=== PATIENT | female | born 1950 | race Caucasian/White ===

== ENCOUNTER 2018-04-19 11:24 | Inpatient (IN) ==
--- NOTE | 2018-04-19 11:49 | PROVIDER DOCUMENTATION ---
HPI-General Adult - General Stated Complaint: FALL Time Seen by Provider: 04/19/18 11:42 Source: patient Allergies/Adverse Reactions: Patient Allergies Allergy/AdvReac Type Severity Reaction Status Date / Time codeine Allergy ANAPHYLAXIS Verified 02/06/18 09:48 erythromycin base Allergy ANAPHYLAXIS Verified 02/06/18 09:48 [Erythromycin Base] Iodinated Contrast- Oral and Allergy RASH Verified 02/06/18 09:48 IV Dye [IV Dye] Penicillins Allergy ANAPHYLAXIS Verified 02/06/18 09:48 Home Medications: Home Medication List Medication Instructions Recorded Confirmed Last Taken Type Metformin [Glucophage] 500 mg PO DAILY 08/30/17 02/15/18 02/14/18 08:00 History Cholecalciferol (Vitamin D3) 2,000 unit PO DAILY #120 cap 10/13/17 02/15/18 08:00 Rx [D3-2000] Metoclopramide [Reglan Liquid] 10 mg PO AC + HS #30 udc 10/13/17 02/15/18 08:00 Rx Escitalopram [Lexapro] 10 mg PO DAILY 02/06/18 02/15/18 02/14/18 20:00 History Insulin Regular, Human [Novolin R] 5 - 10 units SQ TID 02/06/18 02/15/18 20:00 History - History of Present Illness -Gen Adult Nature of Presenting Problems: Pt. is 68 yof that presents with c/o left hip pain with dizziness. She reports she has been nauseated and dizzy and she tried to sit down in her chair but fell forward instead hitting her head on an unknown object. She reports she was knocked out for a couple minutes and when she woke she vomited. Pt. was brought in by EMS. Pt. reports it hurts to move her left leg and EMS reports shortened and rotated inward. Location of Pain/Injury: reports: head, pelvis. denies: none, face, mouth, neck , chest, upper extremity, hand(s), abdomen, back, genitalia, lower extremity, feet, upper body, lower body, generalized, other Pain Radiation: reports: no radiation. denies: arm(s), back, buttocks, chest, epigastric, feet, groin, jaw, flank (L), legs (lower), LLQ, LUQ, neck, periumbilical, flank (R), RLQ, RUQ, shoulder(s), scapula, scrotal, sternal notch , suprapubic, legs (upper), urethral, vaginal, other Quality of Pain: reports: aching. denies: burning, cramping, stabbing, throbbing, tightness Severity: reports: moderate. denies: mild, severe Onset/Duration: reports: abrupt, just prior to arrival Timing: reports: still present. denies: improving, gone now, constant, getting worse Context/Activities at Onset: reports: light activity, recent trauma history. denies: none, moderate activity, vigorous activity, recent emotional stress, recent physical stress, possible bad food, cold exposure, eating, out of country travel, rest, sleep, sexual activity, other Modifying Factors: improves with: immobilization. worse with: movement Associated Symptoms: reports: dizziness, headaches, joint pain (Left hip), nausea, vomiting, weakness. denies: denies symptoms, anxiety, arm pain, back/ neck pain, chest pain, constipation, cough, diaphoresis, diarrhea, EENT symptoms , fatigue, fever/chills, genitourinary problems, heartburn, loss of appetite, malaise, muscle aches, sinus congestion/drainage, rash, seizure, shortness of breath, sensory/motor loss, pain with inspiration, swelling/mass in abdomen, syncope, trouble walking, other Similar Symptoms Previously?: No Recently seen or treated by another doctor?: No Review of Systems - Adult - REVIEW OF SYSTEMS - ADULT Constitutional: reports: no symptoms reported Eyes: reports: no symptoms reported Ears, Nose, Mouth & Throat: reports: no symptoms reported Cardiovascular: reports: no symptoms reported Respiratory: reports: no symptoms reported Gastrointestinal: reports: see HPI, nausea, vomiting. denies: hematemesis, diarrhea, frequent heartburn Genitourinary: reports: no symptoms reported Musculoskeletal: reports: see HPI, joint pain (Left hip). denies: bone pain, muscle aches, neck pain Integumentary: reports: no symptoms reported Neurological: reports: see HPI, dizziness/vertigo, headache/migraines. denies: numbness, seizure, tremors Psychiatric: reports: no symptoms reported Past History - Adult - PAST MEDICAL HISTORY-ADULT Review of Records: reports: Old Records Reviewed, Nursing Assessment Review, Medications Reviewed, Social history reviewed & non-contributory. Major Childhood Illnesses: reports: denies history Cardiovascular: reports: HTN Respiratory: reports: denies history Gastrointestinal: reports: GERD, ulcer Obstetrical/Gynecological: reports: denies history Genitourinary: reports: denies history Musculoskeletal: reports: denies history Neurological: reports: denies history Psychiatric: reports: denies history Endocrine/Immune: reports: denies history, Diabetes Other Conditions: reports: other cancer (breast) Additional History: breast cancer, sleep apnea - PRIOR SURGERIES/PROCEDURES Surgical/Procedure History: reports: hysterectomy, other (carpal tunnel ) - IMMUNIZATION STATUS Childhood Immunizations: UTD Flu Vaccine: See Nurse Assessment - FAMILY HISTORY Family History: reviewed, not pertinent - SOCIAL HISTORY Smoking: denies Physical Exam-General - PHYSICAL EXAM-ADULT Initial Vital Signs Reviewed: Yes - CONSTITUTIONAL General Appearance: alert, moderate distress, obese. negative: anxious, slow to respond, obtunded, combative - EYES Eyes: PERRL/EOMI, pink conjunctivae. negative: conjuctival exudate, scleral icterus, subconjunctival hemorrhage - HEAD, EARS, NOSE, MOUTH & THROAT HENMT: normocephalic/atraumatic, moist mucous membranes. negative: angioedema, frontal tenderness, maxillary tenderness - NECK Neck: non-tender, full range of motion, supple, normal inspection. negative: lymphadenopathy, trachial deviation, thyromegaly - RESPIRATORY Respiratory: lungs clear, normal breath sounds. negative: crackles, rales, rhonchi, stridor, wheezing - CARDIOVASCULAR Cardiovascular: normal peripheral pulses, regular rate, rhythm, no edema, no JVD . negative: extra beats, friction rub, irregularly irregular - GASTROINTESTINAL (ABDOMEN) Abdominal Exam: normal bowel sounds, non tender, soft. negative: distended, guarding, rigid, rebound, tenderness, hernia, mass - LYMPHATIC Lymphatic: no adenopathy. negative: axilla node tender, cervical node tenderness - MUSCULOSKELETAL Back Exam: normal inspection, no CVA tenderness, no vertebral tenderness. negative: decreased range of motion, swelling, vertebral tenderness Extremity: deformity (Left leg is rotated inward and shortened slightly), tenderness (Left hip). negative: normal range of motion, erythema, inflammation , swelling Peripheral Pulses: radial (R): 2+, radial (L): 2+ - SKIN Integumentary: pallor. negative: cyanosis, diaphoresis, erythema, jaundice, petechiae, rash, swelling, tenderness - NEUROLOGIC Neurologic: grossly normal, no motor/sensory deficits. negative: aphasia, facial droop, focal weakness, motor weakness, sensory deficit - PSYCHIATRIC Psych/Mental Status: normal mood/affect, normal thought content, normal thought process, oriented x 3. negative: anxious, paranoid, tearful Progress - PLAN OF CARE/RESULTS Progress/Plan/Lab Results: Orders Category Date Time Status FSBS [Finger Stick Blood Sugar (ED)] DIRECTED Care 04/19/18 11:42 Ordered Saline Loc NOW Care 04/19/18 11:42 Ordered CHEST-1 VIEW [RAD] Stat Exams 04/19/18 11:[address] HEAD/C-SPINE W/O CONTRAST [CT] Stat Exams 04/19/18 11:43 Ordered XRAY PELVIS W/HIP 2-3VW LT [RAD] Stat Exams 04/19/18 11:43 Ordered CBC WITH ELECTRONIC DIFF [HEME] Stat Lab 04/19/18 11:42 Uncollected CK PROFILE [SP CHEM] Stat Lab 04/19/18 11:42 Uncollected COMPREHENSIVE METABOLIC PANEL [CHEM] Stat Lab 04/19/18 11:42 Uncollected PROTIME WITH INR [COAG] Stat Lab 04/19/18 11:42 Uncollected PTT [COAG] Stat Lab 04/19/18 11:42 Uncollected TROPONIN T Stat Lab 04/19/18 11:42 Uncollected URINALYSIS W/POSS RFLX CULT [URINALYSIS] Stat Lab 04/19/18 11:43 Uncollected EKG [EKG] Stat Ther 04/19/18 11:42 Ordered Laboratory Tests 04/19/18 04/19/18 04/19/18 12:05 12:05 12:05 WBC 5.18 RBC 4.86 Hgb 13.6 Hct 39.9 MCV 82.1 MCH 28.0 MCHC 34.1 RDW Std Deviation 14.4 Plt Count 137 MPV 9.8 Immature Gran % (Auto) 0.0 Neut % (Auto) 67.4 Lymph % (Auto) 24.3 Mccone % (Auto) 7.3 Eos % (Auto) 0.8 Baso % (Auto) 0.2 Immature Gran # (Auto) 0.00 Neut # (Auto) 3.49 Lymph # (Auto) 1.26 Mccone # (Auto) 0.38 Eos # (Auto) 0.04 Baso # (Auto) 0.01 PT 15.4 INR 1.13 PTT (Actin FS) 24.7 Sodium 137 Potassium 3.5 Chloride 97 L Carbon Dioxide 26 Anion Gap 14 BUN 16 Creatinine 0.5 Estimated GFR/1.73 m2 > 60 BUN/Creatinine Ratio 32 Glucose 307 H POC Glucose Calculated Osmolality 287 Calcium 8.9 Total Bilirubin 1.09 H AST 18 ALT 13 Alkaline Phosphatase 92 Creatine Kinase 48 Troponin T Total Protein 6.3 Albumin 3.7 Globulin 2.6 Albumin/Globulin Ratio 1.4 Urine Source Urine Color Urine Turbidity Urine pH Ur Specific Bone Gap Urine Protein Ur Glucose (Stick) Ur Ketones (Stick) Urine Blood Urine Nitrite Urine Bilirubin Urobilinogen Dipstick Urine Leukocytes Urine WBC (Auto) Urine RBC (Auto) U Epithel Cells (Auto) Urine Bacteria (Auto) Acetone Level 04/19/18 04/19/18 04/19/18 12:05 12:05 12:32 WBC RBC Hgb Hct MCV MCH MCHC RDW Std Deviation Plt Count MPV Immature Gran % (Auto) Neut % (Auto) Lymph % (Auto) Mccone % (Auto) Eos % (Auto) Baso % (Auto) Immature Gran # (Auto) Neut # (Auto) Lymph # (Auto) Mccone # (Auto) Eos # (Auto) Baso # (Auto) PT INR PTT (Actin FS) Sodium Potassium Chloride Carbon Dioxide Anion Gap BUN Creatinine Estimated GFR/1.73 m2 BUN/Creatinine Ratio Glucose POC Glucose 299 H Calculated Osmolality Calcium Total Bilirubin AST ALT Alkaline Phosphatase Creatine Kinase Troponin T 0.017 Total Protein Albumin Globulin Albumin/Globulin Ratio Urine Source Urine Color Urine Turbidity Urine pH Ur Specific Bone Gap Urine Protein Ur Glucose (Stick) Ur Ketones (Stick) Urine Blood Urine Nitrite Urine Bilirubin Urobilinogen Dipstick Urine Leukocytes Urine WBC (Auto) Urine RBC (Auto) U Epithel Cells (Auto) Urine Bacteria (Auto) Acetone Level NEGATIVE 04/19/18 04/19/18 13:22 14:33 WBC RBC Hgb Hct MCV MCH MCHC RDW Std Deviation Plt Count MPV Immature Gran % (Auto) Neut % (Auto) Lymph % (Auto) Mccone % (Auto) Eos % (Auto) Baso % (Auto) Immature Gran # (Auto) Neut # (Auto) Lymph # (Auto) Mccone # (Auto) Eos # (Auto) Baso # (Auto) PT INR PTT (Actin FS) Sodium Potassium Chloride Carbon Dioxide Anion Gap BUN Creatinine Estimated GFR/1.73 m2 BUN/Creatinine Ratio Glucose POC Glucose Calculated Osmolality Calcium Total Bilirubin AST ALT Alkaline Phosphatase Creatine Kinase Troponin T 0.011 Total Protein Albumin Globulin Albumin/Globulin Ratio Urine Source CATH Urine Color YELLOW Urine Turbidity CLEAR Urine pH 8.5 Ur Specific Bone Gap 1.023 Urine Protein 200 A Ur Glucose (Stick) >1000 A Ur Ketones (Stick) 60 A Urine Blood NEGATIVE Urine Nitrite NEGATIVE Urine Bilirubin NEGATIVE Urobilinogen Dipstick 3 A Urine Leukocytes NEGATIVE Urine WBC (Auto) <10 Urine RBC (Auto) <10 U Epithel Cells (Auto) <10 Urine Bacteria (Auto) NEGATIVE Acetone Level Discussed results and plan of care with Dr. Ham. He states to give some fluids and admit the patient. Discussed results and plan of care with patient. Patient agrees with plan and verbalizes understanding. Result Diagrams: 04/19/18 12:05 04/19/18 12:05 - EKG 1 Time of EKG reading by physician:: 13:03 EKG Read and Signed by:: Shiva Ham EKG Interpretation (*Must complete 3 of following elements*): Normal Rate: 80 Rhythm: NSR 2 Time of EKG reading by physician:: 14:17 EKG Read and Signed by:: Shiva Ham EKG Interpretation (*Must complete 3 of following elements*): Normal Rate: 75 Rhythm: NSR - XRAY 1 XRAY: Left XRAY Study: Pelvis ([facility] [address] , [address], [place] [address] Department of Imaging Patient: SHIVA MONTES DE OCA Date: #: [id number] : 1950DM Status: REG [facility]#: [id number] Age/Sex: 68/FRoom/Bed: Loc: ED Ordering Physician: Tejal Arriaza Family Physician: None,PCP Reason for Procedure: Fall Left hip pain Signed EXAM : XRAY PELVIS W/HIP 2-3VW LT 04/19/2018 HISTORY: Fall Left hip pain TECHNIQUE : AP pelvis and left hip three views COMMENT: The hip joint spaces well- maintained. There is no evidence of fracture or dislocation. There is extensive arteriosclerosis. IMPRESSION: No evidence of acute bony disease. Electronically signed by Bruce Morris 04/19/2018 12:45 PM 04/19/18 1245 Interpreting Physician: Bruce Morris MD Dictated Date/Time: 1242 cc: Tejal Arriaza; None,PCP), Hip XRAY Interpretation: See note 2 XRAY Study: Chest ([facility] [address] [place] [address], [address], [place] [address] Department of Imaging Patient: SHIVA MONTES DE OCA Date: #: [id number] : 1950DM [facility] [id number] Age/Sex: 68/FRoom/Bed: Loc: ED Ordering Physician: Tejal Arriaza Family Physician: None,PCP Reason for Procedure: dizziness Signed EXAM: CHEST-1 VIEW 04/19/2018 HISTORY: dizziness TECHNIQUE: AP upright at 1220 COMMENT: There is no evidence of acute cardiac or pulmonary disease. Compared to 2017 there has been no significant change in the appearance of the chest. IMPRESSION: Stable chest. Electronically signed by Bruce Morris 04/19/2018 12 :42 PM 04/19/18 1242 Interpreting Physician: Bruce Morris MD Dictated Date/Time: 04/19/18 1241 cc: Tejal Arriaza; None,PCP) XRAY Interpretation: See note - CT/MRI 1 CT Study: Cervical Spine ([facility] [address] , [address], [place] [address] Department of Imaging Patient: SHIVA MONTES DE OCA Date : 04/19/18#: [id number] : 1950DM [id number] Age/Sex: 68/FRoom/Bed: Loc: ED Ordering Physician: Tejal Arriaza Family Physician: None,PCP Reason for Procedure: Fall with + LOC Signed EXAM: CT HEAD/C-SPINE W/O CONTRAST 04/19/2018 HISTORY: Fall with + LOC TECHNIQUE: This exam was performed using automated exposure control, adjustment of mA or kV according to patient size, and/or use of iterative reconstruction technique. COMMENT: There is no evidence of mass effect, bleed, or abnormal extra-axial fluid collection. Compared to the previous study of 10/07/2017 the appearance the brain has not changed significantly. There is a small amount of fluid in the right maxillary sinus which is actually improved since the previous study. Cervical spine: There are degenerative disc changes at C5-6 with anterior and posterior osteophyte formation. There is no evidence of fracture, subluxation, or prevertebral soft tissue swelling. IMPRESSION: 1. No evidence of acute intracranial disease. Improved right maxillary sinusitis. 2. Degenerative disc disease at C5-6 without evidence of acute bony disease in the cervical spine. Electronically signed by Bruce Morris 04/19/2018 12:41 PM 04/19/18 1241 Interpreting Physician: Bruce Morris MD Dictated Date/Time: 02/01/19 1239 cc: Tejal Arriaza; None,PCP), Head CT Results: See note - CONSULTS/PCP/HOSPITALIST Notification #1 *Consult/PCP/Hospitalist*: Breonna [facility] for the hospitilist Time Discussed: 15:48 Reason/Comments: Admission Consult Disposition: other (States she is leaving and I need to call Dr. Hathaway ) #2 Consult: Dr. Hathaway Time Discussed: 15:54 Reason/Comments: Admission Consult Disposition: Will see in ED Departure - Departure Date of Disposition Decision: 04/19/18 Time of Disposition Decision: 15:23 DIAGNOSIS: Orthostatic dizziness, Hyperglycemia, Hyperbilirubinemia Disposition: ADMITTED INPATIENT 09 Certified Medical Emergency: Emergent Condition: Stable Referrals and Follow-Ups: None,PCP [Primary Care Provider] - - Critical Care Note This patient required my direct & personal management of CC.: No Attestation - Physician/ POONAM Attestation Patient care was provided by Advanced Practice Provider:: Yes Advanced Practice Provider:: Tejal Arriaza Advanced Practice Provider documentation review:: The Mid-level provider documentation, treatment plan and medical decision making was reviewed by the physician who agrees with all treatment and medical decision making by the P. The physician spent face to face time with patient:: No Advanced Practice Provider documentation review:: Supervising physician onsite and consulted in the evaluation and care of this patient. The physician did not have a face to face encounter with the patient.
[2018-04-19 12:14] LABS: BASO# 0.01 X1000 (0.0-0.2); BASO% 0.2 % (0.0-0.8); EOS# 0.04 X1000 (0.0-0.7); EOS% 0.8 % (0.0-10.0); HEMATOCRIT 39.9 % (37.0-47.0); HEMOGLOBIN 13.6 g/dL (12.0-16.0); LYMPH# 1.26 X1000 (1.2-3.4); LYMPH% 24.3 % (20.5-51.1); MCHC 34.1 g/dL (33-37); MCV 82.1 FL (81-99); MONO# 0.38 X1000 (0.11-0.59); MONO% 7.3 % (1.7-9.3); MPV 9.8 FL (7.4-10.4); NEUT# 3.49 X1000 (1.4-6.5); NEUT% 67.4 % (42.2-75.2); PLT 137 X1000 (130-400); RBC 4.86 XMIL (4.2-5.4); RDW 14.4 % (11.5-14.5); WBC 5.18 X1000 (4.8-10.8)
[2018-04-19 12:23] LABS: AGAP 14; ALB/GLOB RATIO 1.4; ALBUMIN 3.7 g/dL (3.5-5.0); ALKALINE PHOSPHATASE 92 U/L (32-104); BUN 16 mg/dL (8-22); CALCIUM 8.9 mg/dL (8.8-10.2); CHLORIDE 97 mmol/L (98-107); CK PROFILE 48 U/L (24-173); COSMO 287; CREATININE 0.5 mg/dL (0.5-0.9); ESTIMATED GFR > 60; GLUCOSE 307 mg/dL (70-104); GOT 18 U/L (10-30); GPT 13 U/L (10-36); POTASSIUM 3.5 mmol/L (3.5-5.1); SODIUM 137 mmol/L (136-145); TCO2 26 mmol/L (25-35); TOTAL BILIRUBIN 1.09 mg/dL (0.20-1.00); TOTAL PROTEIN 6.3 g/dL (6.3-8.3)
[2018-04-19 12:30] LABS: INR 1.13; PROTIME 15.4 Seconds (11.0-16.0)
[2018-04-19 12:31] LABS: PTT 24.7 Seconds (22.3-41.8)
--- NOTE | 2018-04-19 12:43 | Diag Imaging Result Doc PS360 ---
EXAM: CT HEAD/C-SPINE W/O CONTRAST 04/19/2018 HISTORY: Fall with + LOC TECHNIQUE: This exam was performed using automated exposure control, adjustment of mA or kV according to patient size, and/or use of iterative reconstruction technique. COMMENT: There is no evidence of mass effect, bleed, or abnormal extra-axial fluid collection. Compared to the previous study of 10/07/2017 the appearance the brain has not changed significantly. There is a small amount of fluid in the right maxillary sinus which is actually improved since the previous study. Cervical spine: There are degenerative disc changes at C5-6 with anterior and posterior osteophyte formation. There is no evidence of fracture, subluxation, or prevertebral soft tissue swelling. IMPRESSION: 1. No evidence of acute intracranial disease. Improved right maxillary sinusitis. 2. Degenerative disc disease at C5-6 without evidence of acute bony disease in the cervical spine. Electronically signed by Bruce Morris 04/19/2018 12:41 PM
--- NOTE | 2018-04-19 12:44 | Diag Imaging Result Doc PS360 ---
EXAM: CHEST-1 VIEW 04/19/2018 HISTORY: dizziness TECHNIQUE: AP upright at 1220 COMMENT: There is no evidence of acute cardiac or pulmonary disease. Compared to 02/03/2018 there has been no significant change in the appearance of the chest. IMPRESSION: Stable chest. Electronically signed by Bruce Morris 04/19/2018 12:42 PM
--- NOTE | 2018-04-19 12:47 | Diag Imaging Result Doc PS360 ---
EXAM: XRAY PELVIS W/HIP 2-3VW LT 04/19/2018 HISTORY: Fall Left hip pain TECHNIQUE: AP pelvis and left hip three views COMMENT: The hip joint spaces well-maintained. There is no evidence of fracture or dislocation. There is extensive arteriosclerosis. IMPRESSION: No evidence of acute bony disease. Electronically signed by Bruce Morris 04/19/2018 12:45 PM
--- NOTE | 2018-04-19 13:21 | EKG Report ---
Test Performed on : 04/19/2018 12:59:31 PM Test Reason : dizziness Blood Pressure : / mmHG Vent. Rate : 080 BPM Atrial Rate : 080 BPM P-R Int : 154 ms QRS Dur : 062 ms QT Int : 420 ms P-R-T Axes : 032 011 036 degrees QTc Int : 484 ms Normal sinus rhythm. Septal infarct (cited on or before 21-JUL-2016) Abnormal ECG When compared with ECG of 06-FEB-2018 10:14, Questionable change in QRS axis Unconfirmed Result
[2018-04-19 13:26] LABS: URINE SOURCE CATH
[2018-04-19 13:29] LABS: BILIRUBIN URINE NEGATIVE (NEGATIVE); BLOOD URINE NEGATIVE (NEGATIVE); COLOR YELLOW; GLUCOSE URINE >1000 mg/dL (NEGATIVE); KETONE URINE 60 mg/dL (NEGATIVE); LEUKOCYTES URINE NEGATIVE (NEGATIVE); NITRITE URINE NEGATIVE (NEGATIVE); PH URINE 8.5; PROTEIN URINE 200 mg/dL (NEGATIVE); SP GRAVITY URINE 1.023; TURBIDITY URINE CLEAR (CLEAR); UROBILINOGEN URINE 3 mg/dL (NORMAL)
[2018-04-19 13:30] LABS: UR EPITHELIAL CELLS <10 /HPF (<10); URINE BACTERIA NEGATIVE /HPF; URINE RBC <10 /HPF (<10); URINE WBC <10 /HPF (<10)
[2018-04-19] MEDS ORDERED: ANTIVERT PO ONE (13:48)
[2018-04-19] MEDS ORDERED: TORADOL IV ONE (14:16)
--- NOTE | 2018-04-19 14:52 | EKG Report ---
Test Performed on : 04/19/2018 2:08:10 PM Test Reason : Repeat Blood Pressure : / mmHG Vent. Rate : 075 BPM Atrial Rate : 075 BPM P-R Int : 156 ms QRS Dur : 072 ms QT Int : 424 ms P-R-T Axes : 033 000 015 degrees QTc Int : 473 ms Normal sinus rhythm. Normal ECG When compared with ECG of 19-APR-2018 12:59, (Unconfirmed) No significant change was found Unconfirmed Result
[2018-04-19] MEDS ORDERED: NS 1,000 ML IV ONE (15:23)
[2018-04-19] MEDS ORDERED: CATAPRES PO ONE (15:23)
[2018-04-19] MEDS ORDERED: TYLENOL PO ONE (17:06)
[2018-04-19] MEDS ORDERED: LABETALOL IV PRN (19:01)
[2018-04-19] MEDS: NS 1,000 ML IV SCH (21:24)
[2018-04-19] MEDS: HUMULIN R SUBQ SCH (21:24)
[2018-04-19] MEDS: COREG PO SCH (22:40)
[2018-04-20] MEDS: HUMULIN R SUBQ SCH ×4 (06:10→20:27)
[2018-04-20] MEDS: PROTONIX PO SCH (06:11)
[2018-04-20 07:02] LABS: BASO# 0.01 X1000 (0.0-0.2); BASO% 0.3 % (0.0-0.8); EOS# 0.11 X1000 (0.0-0.7); EOS% 2.8 % (0.0-10.0); HEMATOCRIT 38.2 % (37.0-47.0); HEMOGLOBIN 12.5 g/dL (12.0-16.0); LYMPH# 1.23 X1000 (1.2-3.4); LYMPH% 31.6 % (20.5-51.1); MCHC 32.7 g/dL (33-37); MCV 85.5 FL (81-99); MONO# 0.29 X1000 (0.11-0.59); MONO% 7.5 % (1.7-9.3); MPV 9.7 FL (7.4-10.4); NEUT# 2.25 X1000 (1.4-6.5); NEUT% 57.8 % (42.2-75.2); PLT 121 X1000 (130-400); RBC 4.47 XMIL (4.2-5.4); RDW 14.7 % (11.5-14.5); WBC 3.89 X1000 (4.8-10.8)
[2018-04-20 07:39] LABS: AGAP 10; BUN 21 mg/dL (8-22); CALCIUM 8.2 mg/dL (8.8-10.2); CHLORIDE 102 mmol/L (98-107); COSMO 289; CREATININE 0.6 mg/dL (0.5-0.9); ESTIMATED GFR > 60; GLUCOSE 249 mg/dL (70-104); POTASSIUM 3.4 mmol/L (3.5-5.1); SODIUM 139 mmol/L (136-145); TCO2 27 mmol/L (25-35)
[2018-04-20 07:43] LABS: HEMOGLOBIN A1C 9.1 % (4.8-6.0)
[2018-04-20] MEDS: LEXAPRO PO SCH (09:12)
[2018-04-20] MEDS: COREG PO SCH ×2 (09:12→20:26)
[2018-04-20] MEDS: VITAMIN D PO SCH (09:12)
[2018-04-20] MEDS: TYLENOL PO PRN ×2 (09:53→20:26)
--- NOTE | 2018-04-20 10:52 | HISTORY AND PHYSICAL ---
CHIEF COMPLAINT: Dizziness for about 2 to 3 days. HISTORY OF PRESENT ILLNESS: Ms. Mirna Myers is a 68-year-old female, and she does have a history of hypertension, diabetes, breast cancer, fibromyalgia, and mitral valve prolapse. She presents to the hospital because of dizziness which she has had for about 2 to 3 days. During this period, the dizziness has been present most of the time. She describes headaches and also has had a period of loss of consciousness lasting about 5-10 minutes. This episode was never witnessed. No associated seizures. She had visual blurring and also weakness in both lower extremities which seem to be worse on the left lower extremity than on the right. When she presented to the hospital, her blood pressure was markedly elevated; it was as high as 210/136. The patient has now been admitted for further management. PAST MEDICAL HISTORY: Hypertension, diabetes mellitus, breast cancer, fibromyalgia, mitral valve prolapse. FAMILY HISTORY: Positive for hypertension. PAST SURGICAL HISTORY: She has had carpal tunnel release surgery, hysterectomy , right mastectomy. ALLERGIES: She is allergic to penicillin, codeine, as well as mycins. Iodinated contrast, oral as well as IV. SOCIAL HISTORY: No history of cigarette smoking. No alcohol or drug use. MEDICATIONS: 1. Metformin 500 mg p.o. daily. 2. Vitamin D 2000 units p.o. once a day. 3. Reglan 10 mg p.o. before meals and at bedtime. 4. Lexapro 10 mg p.o. daily. 5. Regular insulin 5 to 10 units subcutaneous 3 times a day. REVIEW OF SYSTEMS: Question of fever.Central Nervous System: She has headaches. Eyes: Blurred vision. ENT: No sinus pressure. Cardiovascular: No chest pain. Respiratory: No cough. Gastrointestinal: She has abdominal pains and diarrhea. Genitourinary: No dysuria. Musculoskeletal: She has joint pains. Dermatology: No skin lesions. Hematology: No bleeding problems. Endocrinology: She does have diabetes. No thyroid disease. PHYSICAL EXAMINATION: VITAL SIGNS: Temperature is 98.1, pulse 83, respiratory rate 22, blood pressure is 210/136. HEENT: Head is atraumatic, normocephalic. She is anicteric. Extraocular movements intact. No oral lesions noted. NECK: No lymphadenopathy or thyromegaly. CARDIOVASCULAR SYSTEM: S1, S2. RESPIRATORY SYSTEM: Has evidence of good air entry bilaterally. ABDOMEN: Soft, nontender. No masses felt. EXTREMITIES: No evidence of edema. CENTRAL NERVOUS SYSTEM: The patient is awake, alert, well oriented, and she seemed to have decreased strength in the left lower extremity. LABORATORY DATA: WBC is 5.18, hematocrit is 39.9 with a platelet count of 137, 000. Sodium is 137, potassium 3.5, chloride 97, bicarb 26. BUN 16, creatinine 0.5, glucose 307. AST 18, ALT 13. Bilirubin 1.09. INR is 1.13. Troponin 0.017. UA is clear. Negative for blood , nitrites, bilirubin. WBC less than 10/HPF. X-ray of the left hip: No evidence of acute bony disease. X-ray of the chest: No acute changes noted. CT scan of the C-spine: No evidence of fracture or subluxation or prevertebral soft tissue swelling. ASSESSMENT AND PLAN: This is a 68-year-old female who presents to the hospital because of dizziness. She did have a period of loss of consciousness lasting about 5-10 minutes. Blood pressure noted to be markedly elevated at the time of presentation. 1. Syncope. We will place the patient on telemetry. Get serial cardiac enzymes. Obtain an MRI of the brain. Also, will get an EEG. The patient was noted to be orthostatic while in the ER. 2. Hypertension. Optimize blood pressure control using both parenteral as well as oral agent. 3. Diabetes mellitus. Maintain patient on sliding scale insulin and monitor blood sugar levels. Check hemoglobin A1c level. 4. History of breast cancer. Status post right mastectomy. 5. Depression. Continue antidepressant. 6. Fibromyalgia, aware. 7. Deep vein thrombosis prophylaxis. Patient placed on treatment for deep venous thrombosis. 8. Gastrointestinal prophylaxis; proton pump inhibitor. cc: Maynor Hathaway MD MTDD
[2018-04-20] MEDS: NS 1,000 ML IV SCH (12:03)
[2018-04-20] MEDS ORDERED: ASPIRIN PO ONE (14:18)
[2018-04-20] MEDS: LOVENOX SUBQ SCH (16:37)
[2018-04-20] MEDS: ANTIVERT PO SCH (16:37)
[2018-04-20] MEDS: NEURONTIN PO SCH (16:37)
--- NOTE | 2018-04-20 20:06 | PROGRESS NOTE ---
DATE: 04/20/2018 INTERVAL HISTORY: The patient still with vertigo with any head or eye movement. No recent vomiting but only improved from administration of 1 dose of Meclizine early this morning. Blood pressure significantly improved. Continues to complain of left calf swelling and pain as well as chronic left leg radicular symptoms but no other new complaints, no further lightheadedness or syncope. Discussed events prior to admission with the patient and she states that she woke up on the floor with no memory of how she got there. She is uncertain but she has been having vertigo symptoms for at least a couple days. She is uncertain if she got dizzy and fell, hitting her head, which knocked her out or if she passed out while standing and fell. She said that she woke up with her head against a cabinet with a headache. REVIEW OF SYSTEMS: 12 point review systems negative. LABS: WBC 3.8, hemoglobin 12.5, hematocrit 38.2, platelets 128. Sodium 139, potassium 3.4, glucose 231 to 323. Urinalysis unremarkable aside from glucosuria and some proteinuria. Troponins times 3 negative. IMAGING: Chest x-ray with no acute process. Cervical spine CT with degenerative disk disease but no bleed or fracture. Hip and pelvis x-ray with no fracture or dislocation. Carotid ultrasound with moderate right-sided stenosis of 62, 79, and mild to moderate left side stenosis of 40 to 59. VITALS: T-max 99.3, pulse 67, respiratory rate 14, blood pressure 140/60, O2 sat 99% on room air. PHYSICAL EXAMINATION: General: No acute distress. Vitals: As above. HEENT: Normocephalic, atraumatic. Moist mucous membranes. No cervical adenopathy. No clear nystagmus but rapid eye movement does appear to induce patient's symptoms of vertigo and nausea. Cardiovascular: Regular rate and rhythm. No gallops. Pulmonary: Clear to auscultation bilaterally. Abdomen: Soft, nontender, nondistended. Bowel sounds positive. Extremities: Peripheral pulses intact. No cyanosis. Does have swelling and tenderness of the left calf. No clear cords palpated. Neurologic: Cranial nerves grossly intact. Pupils: Equal, round, reactive to light. Eye movement induces vertigo and nausea as above. Cranial nerves appear to be intact. Exam of left leg somewhat limited secondary to calf pain. No clear focal deficits. Psychiatric: Normal mood and affect, awake, alert, oriented x3. Skin: No new rashes or lesions. ASSESSMENT AND PLAN: 1. Vertigo and syncope. The patient's symptoms prior to her syncopal episode sound most consistent with BPPV. Experiencing the symptoms of the room spinning around her anytime she moves her eyes or head associated with nausea. Denies any feelings of lightheadedness or presyncopal symptoms. The patient is uncertain if she fell because of vertigo and struck her head causing her syncope or she passed out for another reason and fell Cardiac workup unrevealing so far. CT unrevealing. MRI pending. Carotid Dopplers with [id number] stenosis as above. Will schedule meclizine. Obtain MRI to rule out stroke and will treat patient symptomatically. If her symptoms can be controlled, MRI is negative for stroke, then can probably be discharged tomorrow with ENT follow-up. No signs of arrhythmia on telemetry. Echocardiogram pending. 2. Left calf swelling and pain. We will obtain venous ultrasound to evaluate for possible DVT. 3. Hypertension. Patient with markedly elevated hypertension on admission with blood pressure up to 210/136. Given clonidine at 90 with a rapid decrease. Currently only on Coreg. Will not add additional agents for now until stroke is ruled out, suspected strokes ruled out or patient moves past the range for permissive hypertension, then we will likely need an additional blood pressure agent. 4. Diabetes mellitus. Hemoglobin A1c 9.1. Control here has been suboptimal. Will increase sliding scale insulin and monitor. 5. GERD/gastritis. Continue PPI. 6. Breast cancer. Patient reports last evaluation, she was clear of cancer. She is finished with chemotherapy and not requiring any anti hormonal therapy. She follows with Dr. Hoff. 7. Hypokalemia. Will replete and monitor. 8. Left leg radicular pain. Patient reports radicular pain mild along with subjective weakness in left leg for approximately one year. Gave some low-dose gabapentin and recommend outpatient ortho follow-up. 9. Deep vein thrombosis prophylaxis. Lovenox.
[2018-04-20] MEDS: NORCO-7.5 PO PRN (20:23)
[2018-04-20] MEDS ORDERED: MELATONIN PO ONE (20:39)
[2018-04-21] MEDS: NS 1,000 ML IV SCH ×2 (04:45→18:17)
[2018-04-21] MEDS: NORCO-7.5 PO PRN ×3 (04:45→20:55)
[2018-04-21] MEDS: HUMULIN R SUBQ SCH ×4 (06:18→21:36)
[2018-04-21] MEDS: PROTONIX PO SCH (06:19)
[2018-04-21] MEDS: NEURONTIN PO SCH ×3 (08:14→16:24)
[2018-04-21] MEDS: COREG PO SCH ×2 (08:15→20:55)
[2018-04-21] MEDS: ANTIVERT PO SCH ×3 (08:15→16:24)
[2018-04-21] MEDS: LEXAPRO PO SCH (08:15)
[2018-04-21] MEDS: VITAMIN D PO SCH (08:15)
[2018-04-21] MEDS: ASPIRIN PO SCH (08:15)
--- NOTE | 2018-04-21 10:02 | ECHO REPORT ---
ORDER DATE: 04/19/2018 ECHOCARDIOGRAM: MEASUREMENTS: 1. Left ventricular end-diastolic 3.7. 2. End-systolic 2.4. 3. Septal thickness 1.3. 4. Posterior wall thickness 1.3. 5. Aortic root 2.7. 6. Left atrium 4.0. SUMMARY: 1. Fair quality study. 2. Mild sclerosis of trileaflet aortic valve demonstrated with adequate aortic valve opening evident. Peak gradient across aortic valve is 15 mmHg. Mitral, tricuspid and pulmonic valves are without evidence of structural abnormality. There is trace mitral regurgitation and trace tricuspid regurgitation. The aortic root is normal size. 3. Normal left ventricular chamber size with mild concentric left ventricular hypertrophy is demonstrated. Estimated left ventricular ejection fraction appears to be at least 65%. No regional wall motion abnormalities evident. Left atrium is borderline enlarged. Right atrium and right ventricle are normal in size with normal right ventricular systolic function. 4. No pericardial effusion. 5. Appearance of inferior vena cava suggests normal central venous pressure. cc: MD Maynor Maria MD
[2018-04-21] MEDS: LOVENOX SUBQ SCH ×2 (12:39→14:02)
--- NOTE | 2018-04-21 13:09 | PROGRESS NOTE ---
DATE: 04/21/2018 SUBJECTIVE: Patient is resting in bed. OBJECTIVE: Vital signs: Temperature is 97.9 degrees, pulse 67, blood pressure is 182/81, oxygen saturation is 99%. HEENT: She is atraumatic, normocephalic. Cardiovascular: S1, S2. Respiratory: Has evidence of good air entry bilaterally. Abdomen: Soft, nontender. No masses felt. Extremities: No evidence of significant edema. Central nervous system: The patient is awake and alert. LABS: WBC is 3.89, hematocrit 38.2, with a platelet count of 121,000. Potassium 3.4. ASSESSMENT AND PLAN: 1. Syncope. Maintain patient on telemetry. MRI of the brain as well as EEG still pending. 2. Hypertension. Optimize blood pressure control using parenteral as well as oral agent. 3. Diabetes mellitus. Continue patient on sliding scale insulin as well as a blood sugar monitoring. 4. History of breast cancer. Aware. 5. Depression. Continue antidepressant. 6. Fibromyalgia. Aware. 7. Deep vein thrombosis prophylaxis. SCDs. 8. Gastrointestinal prophylaxis. PPIs. cc: Maynor Hathaway MD
[2018-04-21] MEDS: MELATONIN PO SCH (20:55)
[2018-04-22] MEDS: NORCO-7.5 PO PRN ×3 (03:56→20:04)
[2018-04-22] MEDS: PROTONIX PO SCH (06:18)
[2018-04-22] MEDS: HUMULIN R SUBQ SCH ×4 (06:18→22:13)
[2018-04-22 07:29] LABS: BASO# 0.01 X1000 (0.0-0.2); BASO% 0.2 % (0.0-0.8); EOS# 0.13 X1000 (0.0-0.7); EOS% 3.1 % (0.0-10.0); HEMOGLOBIN 13.2 g/dL (12.0-16.0); LYMPH# 0.98 X1000 (1.2-3.4); LYMPH% 23.3 % (20.5-51.1); MCH 28.1 PG (27-31); MCV 85.1 FL (81-99); MONO# 0.34 X1000 (0.11-0.59); MONO% 8.1 % (1.7-9.3); MPV 10.4 FL (7.4-10.4); NEUT# 2.75 X1000 (1.4-6.5); NEUT% 65.3 % (42.2-75.2); PLT 108 X1000 (130-400); RDW 14.7 % (11.5-14.5); WBC 4.21 X1000 (4.8-10.8)
[2018-04-22 07:51] LABS: AGAP 12; ALB/GLOB RATIO 1.4; ALBUMIN 3.2 g/dL (3.5-5.0); ALKALINE PHOSPHATASE 86 U/L (32-104); BUN 14 mg/dL (8-22); CALCIUM 8.1 mg/dL (8.8-10.2); CHLORIDE 102 mmol/L (98-107); COSMO 284; CREATININE 0.5 mg/dL (0.5-0.9); ESTIMATED GFR > 60; GLUCOSE 232 mg/dL (70-104); GOT 20 U/L (10-30); GPT 13 U/L (10-36); POTASSIUM 3.6 mmol/L (3.5-5.1); SODIUM 138 mmol/L (136-145); TCO2 24 mmol/L (25-35); TOTAL BILIRUBIN 0.71 mg/dL (0.20-1.00); TOTAL PROTEIN 5.5 g/dL (6.3-8.3)
[2018-04-22] MEDS: NS 1,000 ML IV SCH (08:23)
[2018-04-22] MEDS: VITAMIN D PO SCH (08:24)
[2018-04-22] MEDS: ANTIVERT PO SCH ×3 (08:24→16:18)
[2018-04-22] MEDS: NEURONTIN PO SCH ×3 (08:24→16:18)
[2018-04-22] MEDS: ASPIRIN PO SCH (08:24)
[2018-04-22] MEDS: LEXAPRO PO SCH (08:24)
[2018-04-22] MEDS: COREG PO SCH ×2 (08:24→20:04)
--- NOTE | 2018-04-22 11:10 | PROGRESS NOTE ---
DATE: 04/22/2018 SUBJECTIVE: The patient is resting comfortable in bed. OBJECTIVE: Vital signs: Temperature 98.2 degrees, pulse 73, respiration rate 15, blood pressure is 186/84. HEENT: She is atraumatic, normocephalic. Cardiovascular system: S1, S2. Respiratory system: Has evidence of good air entry bilaterally. Abdomen: Soft, nontender. No masses. Extremities: She does have tenderness as well as swelling involving the left calf region. Central nervous system: No obvious focal deficits noted. LABS: WBC is 4.21, hematocrit is 40.0, with a platelet count of 108,000. Sodium is 138, potassium 3.6, chloride 102, bicarb 24, BUN 14, creatinine 0.5. Venous Doppler study of the left lower extremity positive for DVT. ASSESSMENT AND PLAN: 1. Syncope. The patient seems to be doing well. We will maintain patient on telemetry. MRI of the brain as well as EEG still pending. 2. Hypertension. We will optimize blood pressure control using both oral as well as parenteral agent. 3. Deep vein thrombosis left lower extremity. Start patient on anticoagulation. Will start patient on low molecular weight heparin. This can be transitioned to oral agent prior to her discharge from the hospital. 4. Diabetes mellitus. Maintain patient on sliding scale insulin. Monitor blood sugar levels. 5. History of breast cancer. Aware. 6. Depression. Continue antidepressant. 7. History of fibromyalgia. Aware. Use analgesics as needed. 8. Deep vein thrombosis prophylaxis. The patient will be placed on Lovenox. 9. Gastrointestinal prophylaxis. PPI. cc: Maynor Hathaway MD
[2018-04-22] MEDS: LOVENOX SUBQ SCH ×2 (11:54→22:14)
[2018-04-22] MEDS: NORVASC PO SCH (11:55)
[2018-04-22] MEDS: TYLENOL PO PRN (16:18)
--- NOTE | 2018-04-22 18:45 | EEG REPORT ---
DATE: 04/19/2018 EEG NUMBER: [id number] COMMENT: This is a digitally recorded EEG on a 68-year-old patient with reported episodes of syncope. FINDINGS: Some minor room artifacts and movement artifacts were present, but did not hinder interpretation. During waking, medium amplitude, 10 hertz posterior rhythm is present symmetrically and reacts at times to eye opening. Background contains polymorphic and rhythmic theta frequencies over the frontal and central regions symmetrically. Drowsing occurred briefly. Stage 2 sleep was not recorded. Photic stimulation did not significantly alter the record. Hyperventilation was not done. No definite epileptiform discharge was identified. INTERPRETATION: Normal EEG. CORRELATION: The absence of epileptiform discharges on a single EEG does not exclude a clinical diagnosis of seizures, but there is nothing on this record to suggest the presence of a seizure disorder. cc: MD Maynor Jerez III, MD MTDKhadijah
[2018-04-22] MEDS: MELATONIN PO SCH (20:04)
--- NOTE | 2018-04-23 05:58 | Extremity Venous Study ---
PROCEDURE NAME: Venous U/S Left Leg - 04/20/2018 REQUESTING PHYSICIAN: John Hester MD. ELECTRONIC TRAIN CONTROL TECHNICIAN: Rizwana Saldana RVT. INDICATIONS: Pain and swelling to left lower extremity. EQUIPMENT: [employer] Vivid E9 ultrasound system with a 9 L-D transducer. FINDINGS: Images of the left lower extremity venous system with comparison shot to the right common femoral vein were obtained in both sagittal and transverse planes. Doppler was used to evaluate veins for spontaneity, phasicity, respiratory excursion, and digital augmentation. RESULTS: Acute DVT noted in the left common femoral, proximal, mid and distal superficial femoral vein, popliteal vein, posterior tibial vein, and peroneal veins. No obvious superficial or deep venous thrombosis noted on this study. INTERPRETATION: Extensive left lower extremity deep venous thrombosis as outlined above. cc: Nadeem Chase MD
[2018-04-23] MEDS: PROTONIX PO SCH (06:17)
[2018-04-23 07:21] LABS: BASO# 0.02 X1000 (0.0-0.2); BASO% 0.5 % (0.0-0.8); EOS% 2.5 % (0.0-10.0); HEMATOCRIT 39.3 % (37.0-47.0); HEMOGLOBIN 12.7 g/dL (12.0-16.0); LYMPH# 1.11 X1000 (1.2-3.4); LYMPH% 27.2 % (20.5-51.1); MCH 27.8 PG (27-31); MCHC 32.3 g/dL (33-37); MONO# 0.33 X1000 (0.11-0.59); MONO% 8.1 % (1.7-9.3); MPV 10.6 FL (7.4-10.4); NEUT# 2.52 X1000 (1.4-6.5); NEUT% 61.7 % (42.2-75.2); PLT 107 X1000 (130-400); RBC 4.57 XMIL (4.2-5.4); RDW 14.7 % (11.5-14.5); WBC 4.08 X1000 (4.8-10.8)
--- NOTE | 2018-04-23 07:24 | Carotid Study ---
DATE: 04/19/2018 PROCEDURE: Carotid duplex imaging. REFERRING PHYSICIAN: Dr. Hathaway. INTERPRETING PHYSICIAN: Dr. Nadeem Chase. TECH: [place]. INDICATIONS: 1. Dizziness, syncope and visual disturbance. 2. Hypertension. 3. History of breast cancer. EQUIPMENT: [employer] E9 ultrasound system with a 9LD transducer. DIAGRAM OF ULTRASOUND IMAGING R L RIGHT INT EXT INT EXT LEFT Aayush (cm/s) Aayush (cm/s) Subclavian 102/2 Subclavian 204/3 CCA Proximal 88/11 CCA Proximal 93/13 CCA Distal 74/10 CCA Distal 60/11 Bulb 207/55 Bulb 114/8 ICA Proximal 163/39 ICA Proximal 116/28 ICA Mid 67/17 ICA Mid 98/15 ICA Distal 56/17 ICA Distal 80/77 ECA 112/0 ECA 136/0 Vertebral 61/15 and antegrade flow Vertebral 45/9 and antegrade flow ICA/CCA Ratio 1.86 ICA/CCA Ratio 1.24 % Stenosis 60-79% % Stenosis 40-59% FINDINGS: There appears to be atherosclerosis which at this time is producing a severe stenosis on the right of 60-79% and the left side producing a moderate stenosis of 40-59%. Both vertebral arteries were antegrade flow. PHYSICIAN INTERPRETATION: Severe stenosis on the right of 60-79% with moderate stenosis on the left of 40-59%. Per the seed laboratory technician's note, a verbal preliminary report was given to the requesting physician. cc: MD Maynor Winston MD
[2018-04-23 07:43] LABS: AGAP 11; ALB/GLOB RATIO 1.4; ALBUMIN 3.3 g/dL (3.5-5.0); ALKALINE PHOSPHATASE 94 U/L (32-104); BUN 11 mg/dL (8-22); CALCIUM 8.3 mg/dL (8.8-10.2); CHLORIDE 100 mmol/L (98-107); COSMO 282; CREATININE 0.4 mg/dL (0.5-0.9); ESTIMATED GFR > 60; GLUCOSE 224 mg/dL (70-104); GOT 26 U/L (10-30); GPT 15 U/L (10-36); POTASSIUM 3.7 mmol/L (3.5-5.1); SODIUM 138 mmol/L (136-145); TCO2 27 mmol/L (25-35); TOTAL BILIRUBIN 0.59 mg/dL (0.20-1.00); TOTAL PROTEIN 5.7 g/dL (6.3-8.3)
[2018-04-23] MEDS: VITAMIN D PO SCH (09:52)
[2018-04-23] MEDS: ANTIVERT PO SCH ×3 (09:52→16:29)
[2018-04-23] MEDS: COREG PO SCH ×2 (09:52→20:49)
[2018-04-23] MEDS: LEXAPRO PO SCH (09:52)
[2018-04-23] MEDS: NORVASC PO SCH (09:52)
[2018-04-23] MEDS: NORCO-7.5 PO PRN ×2 (09:52→20:49)
[2018-04-23] MEDS: HUMULIN R SUBQ SCH ×4 (09:53→20:49)
[2018-04-23] MEDS: LOVENOX SUBQ SCH ×2 (09:53→22:05)
[2018-04-23] MEDS: ASPIRIN PO SCH (09:53)
[2018-04-23] MEDS: NEURONTIN PO SCH ×3 (09:53→16:29)
--- NOTE | 2018-04-23 13:14 | GENERAL SURGERY CONSULTATION ---
DATE: 04/23/2018 TIME: It is 11:50 in the morning. HISTORY OF PRESENT ILLNESS: Ms. Myers is a 68-year-old lady, who was admitted on the 1st with some dizziness and syncopal spells. Her workup thus far has shown a normal EEG. An echocardiogram revealing an ejection fraction of 65%, some left ventricular hypertrophy. Her CT scan of her head showed no acute intracranial disease, some maxillary sinusitis was noted. She has been discovered to have a left leg deep venous thrombosis. Her carotid study shows some plaque in the carotid bulbs with the right side having a stenosis in the range of 60-79%. The peak systolic velocity of the bulb was 207 with a diastolic velocity 55. Her left side is less narrowed. She has antegrade vertebral flow on both sides. She denies ever having a stroke or lateralizing symptoms. She has been having trouble with this dizziness for a few months. OTHER MEDICAL PROBLEMS: Include hypertension, diabetes, fibromyalgia, mitral valve prolapse and a history of breast cancer. PAST SURGICAL HISTORY: Previous surgery includes a carpal tunnel release, hysterectomy and a right mastectomy. FAMILY HISTORY: Pertinent for hypertension. MEDICATIONS: Include metformin, vitamin D, Reglan, Lexapro and insulin. ALLERGIES: She has an allergy to penicillin, codeine, 'mycins and iodinated contrast. SOCIAL HISTORY: She denies smoking, alcohol or drug use. REVIEW OF SYSTEMS: Occasionally pertinent for headaches, blurred vision, dizziness. Occasional joint pains. All other subsystems are negative. PHYSICAL EXAMINATION: Vital Signs: She is afebrile. Heart rate 72, respiratory rate 15, blood pressure 188/80. No carotid bruits are heard. No clavicular distortion. Lungs: Bilateral breath sounds are present. Heart: Regular rate and rhythm. Abdomen: Soft and nontender. Extremities: Her left leg is somewhat tender to palpation with trace edema. She does have normal dorsalis pedis pulses bilaterally. She has +5/+5 strength in all extremities. Her left leg is limited somewhat due to her discomfort. LABS: Hemoglobin 12.7, BUN 11, creatinine 0.4, glucose 224. ASSESSMENT AND PLAN: Carotid disease bilaterally, worse on the right side. Estimated stenosis is 79% but the peak systolic velocity is only 207 with a diastolic velocity of 55. The carotid disease is not the cause of her symptomatology and would be considered asymptomatic at this time. I would simply recommend that we follow her carotids, the next time of the imaging then would be in 6 months to look for progression of disease. She is on antiplatelet therapy and will be on anticoagulation for her deep vein thrombosis , which will add additional protection. So, I will simply see her in followup regarding her carotid disease but no intervention is recommended at this time. Thanks for the opportunity to see her. cc: Checo Angeles MD
[2018-04-23] MEDS: TYLENOL PO PRN (13:58)
--- NOTE | 2018-04-23 14:03 | Diag Imaging Result Doc PS360 ---
EXAM: MRI BRAIN W/WO CONTRAST 04/23/2018 HISTORY: dizziness TECHNIQUE: T1 sagittal and axial and post gadolinium-enhanced FSPGR axial with coronal reformation, STIR, T2, DWI axial and coronal gradient echo. COMMENT: There are no previous MRI studies. There is some punctate subcortical and periventricular white matter hyperintensity in both hemispheres. There is no evidence of bleed or abnormal extra-axial fluid collection. There is no evidence of restricted diffusion. There is some encephalomalacia present in the lateral right cerebellar hemisphere. No abnormal gadolinium enhancement is present. IMPRESSION: Chronic ischemic changes. No evidence of acute disease. Electronically signed by Bruce Morris 04/23/2018 2:01 PM
--- NOTE | 2018-04-23 19:13 | PROGRESS NOTE ---
DATE: 04/23/2018 SUBJECTIVE: The patient is resting comfortably. No acute events noted overnight. OBJECTIVE: Vital signs: Temperature 98.2 degrees, blood pressure 154/68, heart rate 65, respirations 16, and O2 saturation is 100% on room air. General: This is a chronically ill- appearing elderly female lying in bed in no acute distress. Heart: S1, S2 normal. Regular rate and rhythm. Lungs: Equal air entry bilaterally. Abdomen: Positive bowel sounds. Soft, nontender, and nondistended. Extremities: No edema. No cyanosis. Neurologic: The patient is alert and oriented. LABORATORY: Reviewed. ASSESSMENT AND PLAN: 1. Syncope. No further episodes have been noted. We will continue to monitor the patient closely. The MRI of the brain does not show anything acute. 2. Extensive left lower extremity deep vein thrombosis. The patient is on full-dose Lovenox. We will consult with the laundry housekeeping aide for choice of oral anticoagulation. 3. Severe carotid artery stenosis. The patient has been assessed by the general surgeon. We will continue to monitor the patient closely. 4. History of breast cancer status post right mastectomy. Aware. 5. Diabetes mellitus type 2. Continue on sliding scale insulin. 6. We will consult physical therapy. cc: Emelina Newman MD
[2018-04-23] MEDS: MELATONIN PO SCH (20:49)
[2018-04-23] MEDS: APRESOLINE PO SCH (20:49)
[2018-04-24] MEDS: ANTIVERT PO SCH ×4 (03:27→20:32)
[2018-04-24] MEDS: HUMULIN R SUBQ SCH ×4 (06:14→21:30)
[2018-04-24] MEDS: APRESOLINE PO SCH ×3 (06:14→20:32)
[2018-04-24] MEDS: PROTONIX PO SCH (06:14)
[2018-04-24 07:11] LABS: HEMATOCRIT 39.9 % (37.0-47.0); MCH 28.5 PG (27-31); MCHC 32.6 g/dL (33-37); MCV 87.5 FL (81-99); MPV 10.5 FL (7.4-10.4); RBC 4.56 XMIL (4.2-5.4); WBC 3.81 X1000 (4.8-10.8)
[2018-04-24 07:33] LABS: AGAP 13; BUN 11 mg/dL (8-22); CALCIUM 8.7 mg/dL (8.8-10.2); CHLORIDE 99 mmol/L (98-107); COSMO 281; CREATININE 0.3 mg/dL (0.5-0.9); ESTIMATED GFR > 60; GLUCOSE 233 mg/dL (70-104); POTASSIUM 3.6 mmol/L (3.5-5.1); SODIUM 137 mmol/L (136-145); TCO2 25 mmol/L (25-35)
[2018-04-24] MEDS: LEXAPRO PO SCH (08:34)
[2018-04-24] MEDS: VITAMIN D PO SCH (08:35)
[2018-04-24] MEDS: ASPIRIN PO SCH (08:35)
[2018-04-24] MEDS: COREG PO SCH ×2 (08:35→20:32)
[2018-04-24] MEDS: NORCO-7.5 PO PRN ×3 (08:36→20:32)
[2018-04-24] MEDS: NORVASC PO SCH (08:36)
[2018-04-24] MEDS: NEURONTIN PO SCH ×3 (08:36→17:23)
[2018-04-24] MEDS: LOVENOX SUBQ SCH ×3 (08:37→21:30)
--- NOTE | 2018-04-24 12:01 | CONSULTATION ---
DATE OF CONSULTATION: 04/24/2018 HISTORY OF PRESENT ILLNESS: Ms. Myers is 68 years old and she reports onset about 8 days ago of positional dizziness. She noticed that when she was sitting still or reclined still, she did not have much dizziness, but when she turned her head either direction and particularly when she rolled from one side to the other, there was extreme dizziness with head spinning and bed turning features. This was associated with nausea and a few episodes of vomiting. Vision seemed more blurred than usual during these episodes. Episodes resolved over a matter of seconds to minutes. There was never unconsciousness, altered awareness, memory gap. She thinks she had worse left- sided headache, but there was no other focal feature. There was never paralysis. She has not noticed associated loss of hearing, significant earache, tinnitus. She has not recognized fever. PAST MEDICAL HISTORY: Her past history is remarkable for hypertension, diabetes mellitus, breast cancer, fibromyalgia. HOME MEDICATIONS: Her home medicine list is reviewed. I do not see anything that likely would be associated with vertigo. She has not taken meclizine prior to admission, but has had meclizine 25 mg p.o. t.i.d. scheduled during this admission. She has not noticed meclizine to provide benefit. DIAGNOSTIC DATA: Brain MRI done with and without contrast on 04/23/2018 shows typical chronic ischemic change, but nothing focal or acute. There is right lateral cerebellar signal, which may be artifact or may be old encephalomalacia. There is no evidence of brainstem lesion or of acute cerebellar lesion. There is clearly no evidence of acute infarction or bleeding. PHYSICAL EXAMINATION: On exam, Ms. Myers is awake, alert, attentive, appropriate. Speech is not dysarthric. Language function is intact. Memory is good. Head and neck are unremarkable. There is no meningismus. Visual melendez are full, tested grossly by confrontational finger counting, monocularly and binocularly. Pupils react to light. She has full lateral and vertical eye movement. She reports minimal vertigo triggered by rapid eye movement to the left and to the right. There was no significant nystagmus. Rapid head turning to the left and rapid head turning to the right each produced similar levels of vertigo, which resolved rapidly. Facial motility is symmetric. Facial sensation is intact. Gag is intact. Tongue is midline. She can hear. Shoulder shrug is equal. Strength is normal in the arms and legs. She splints and guards the left leg, but shows good power throughout. She reports diminished pinprick appreciation over the distal left leg, more medially than laterally, with inconsistent margins. Sensation is intact proximally over the left leg. She has good sensation over all aspects of the right leg. Proprioception is good at the right great toe MTP joint. Her responses are a little bit slower, but correct when testing proprioception at the left great toe. Plantar response is silent bilaterally. Reflexes are absent at the ankles bilaterally and 1+ symmetrically at the wrists bilaterally. I did not test her gait. IMPRESSION AND PLAN: 1. History sounds like positional vertigo. MRI is reassuring. I do not think we need any further workup urgently. Lack of response to meclizine is disappointing. We might first increase that dose before giving up on meclizine. ENT and Ophthalmology evaluations could be considered. Later, if she does not recover clinically, or if she develops other problems, we might consider repeating the MRI, possibly on a higher field scanner. This could be done as an outpatient. 2. She has some clinical evidence of peripheral neuropathy in the left lower leg , likely attributed to the deep vein thrombosis, and I do not think that needs urgent neurologic workup. Nerve conduction study might be helpful later. This is difficult to sort out in light of the likely superimposed longstanding more symmetric diabetic neuropathy. Thanks for asking Neurology to see Ms. Myers. cc: MD JUNIOR Jerez III
[2018-04-24] MEDS: TYLENOL PO PRN (12:24)
--- NOTE | 2018-04-24 15:32 | PROGRESS NOTE ---
DATE: 04/24/2018 SUBJECTIVE: The patient continues to complain of vertigo. Otherwise, she has no other complaints. OBJECTIVE: Vital Signs: Temperature 97.8, blood pressure 156/59, heart rate 70, respirations 16, O2 saturation 99% on room air. General: This is a chronically ill-appearing elderly female lying in bed in no acute distress. Heart: S1, S2 normal. Lungs clear to auscultation bilaterally. Abdomen: Positive bowel sounds. Soft, nontender, nondistended. Extremities: No edema. No cyanosis. Neurologic: The patient is alert and oriented x3. LABORATORY DATA: Reviewed. ASSESSMENT AND PLAN: 1. Vertigo. The patient has been on meclizine for the past several days; however, she still continues to have vertigo. We will consult with Neurology for further recommendations. 2. Extensive left lower extremity deep vein thrombosis. Continue on full-dose Lovenox. We will await recommendations from the Oncologist regarding anticoagulation choice. 3. Insulin-dependent diabetes mellitus, uncontrolled. Continue with sliding scale insulin. 4. Situational depression. Continue on Lexapro. 5. History of breast cancer status post right mastectomy, aware. 6. Severe carotid artery stenosis. The patient will follow up with General Surgery as outpatient. DISPOSITION: Continue with physical therapy. cc: Emelina Newman MD
[2018-04-24] MEDS: MELATONIN PO SCH (20:32)
[2018-04-25] MEDS: NORCO-7.5 PO PRN ×2 (03:08→11:26)
[2018-04-25] MEDS: PROTONIX PO SCH (06:41)
[2018-04-25] MEDS: APRESOLINE PO SCH ×3 (06:41→20:07)
[2018-04-25] MEDS: HUMULIN R SUBQ SCH ×5 (06:41→20:08)
[2018-04-25 07:23] LABS: AGAP 11; BUN 12 mg/dL (8-22); CALCIUM 8.4 mg/dL (8.8-10.2); CHLORIDE 99 mmol/L (98-107); COSMO 284; CREATININE 0.4 mg/dL (0.5-0.9); ESTIMATED GFR > 60; GLUCOSE 245 mg/dL (70-104); POTASSIUM 3.8 mmol/L (3.5-5.1); SODIUM 138 mmol/L (136-145); TCO2 28 mmol/L (25-35)
[2018-04-25] MEDS: ASPIRIN PO SCH (09:12)
[2018-04-25] MEDS: COREG PO SCH ×2 (09:12→20:08)
[2018-04-25] MEDS: NEURONTIN PO SCH ×3 (09:12→18:24)
[2018-04-25] MEDS: NORVASC PO SCH (09:12)
[2018-04-25] MEDS: VITAMIN D PO SCH (09:12)
[2018-04-25] MEDS: ANTIVERT PO SCH ×2 (09:12→20:07)
[2018-04-25] MEDS: LEXAPRO PO SCH (09:12)
[2018-04-25] MEDS: LOVENOX SUBQ SCH ×2 (09:13→20:10)
--- NOTE | 2018-04-25 13:01 | PROGRESS NOTE ---
DATE: 04/25/2018 SUBJECTIVE: Ms. Myers reports much improvement in her dizziness. She reports she had been able to roll over in bed, move around, sit up without dizziness today. We increased her meclizine dose to 50 mg b.i.d. That may be responsible for some of the benefit or it may be that she simply has gotten better with time. Either way, I would continue meclizine and follow clinically. No other suggestion from Neurology standpoint today. cc: Quan Brar III, MD
--- NOTE | 2018-04-25 16:01 | PROGRESS NOTE ---
DATE: 04/25/2018 SUBJECTIVE: The patient is resting comfortably in bed. She got up with physical therapy today, but she still has significant vertigo when ambulating.. OBJECTIVE: Vital Signs: Temperature 97 degrees, blood pressure 147/64, heart rate 67, respirations 18, O2 saturations 99% on room air. General: This is a chronically ill-appearing, elderly female lying in bed, in no acute distress. Heart: S1, S2 normal. Regular rate and rhythm. Lungs: Equal air entry bilaterally. No crackles. No rales. Abdomen : Positive bowel sounds. Soft, nontender, nondistended. Extremities: No edema. No cyanosis. Neurological: The patient is alert and oriented x3. LABORATORY DATA: Labs reviewed. ASSESSMENT AND PLAN: 1. Vertigo. I discussed the case with Dr. Vu and he will see the patient in his office at the [facility] upon discharge from the hospital. Will continue with meclizine and physical therapy at this time. 2. Extensive left lower extremity deep venous thrombosis. The patient has been switched to Xarelto. 3. Insulin-dependent diabetes mellitus. Continue with sliding scale insulin. 4. History of breast cancer status post right mastectomy. Aware. 5. Situational depression. Continue on Lexapro. 6. Severe carotid artery stenosis. The patient will follow up with Dr. Angeles as outpatient. 7. Disposition. The patient is still very unsteady on her feet due to vertigo. She stated that she wants to think about inpatient rehabilitation. Continue with physical therapy. cc: Emelina Newman MD MTDD
[2018-04-25] MEDS: MELATONIN PO SCH (20:07)
[2018-04-25] MEDS: XARELTO PO SCH (20:08)
[2018-04-26] MEDS ORDERED: ZOFRAN IV PRN (05:42)
[2018-04-26] MEDS: NORCO-7.5 PO PRN ×3 (06:37→19:11)
[2018-04-26] MEDS: APRESOLINE PO SCH ×3 (06:37→20:37)
[2018-04-26] MEDS: HUMULIN R SUBQ SCH ×4 (06:37→20:37)
[2018-04-26] MEDS: PROTONIX PO SCH (06:37)
[2018-04-26 07:08] LABS: HEMATOCRIT 38.6 % (37.0-47.0); HEMOGLOBIN 12.5 g/dL (12.0-16.0); MCH 28.3 PG (27-31); MCHC 32.4 g/dL (33-37); MCV 87.5 FL (81-99); MPV 10.7 FL (7.4-10.4); RBC 4.41 XMIL (4.2-5.4); RDW 15.4 % (11.5-14.5); WBC 3.61 X1000 (4.8-10.8)
[2018-04-26 07:28] LABS: AGAP 11; BUN 12 mg/dL (8-22); CALCIUM 8.4 mg/dL (8.8-10.2); CHLORIDE 99 mmol/L (98-107); COSMO 281; CREATININE 0.3 mg/dL (0.5-0.9); ESTIMATED GFR > 60; GLUCOSE 204 mg/dL (70-104); POTASSIUM 3.5 mmol/L (3.5-5.1); SODIUM 138 mmol/L (136-145); TCO2 28 mmol/L (25-35)
[2018-04-26] MEDS: NORVASC PO SCH (09:10)
[2018-04-26] MEDS: XARELTO PO SCH ×2 (09:10→20:37)
[2018-04-26] MEDS: VITAMIN D PO SCH (09:10)
[2018-04-26] MEDS: ASPIRIN PO SCH (09:10)
[2018-04-26] MEDS: LEXAPRO PO SCH (09:10)
[2018-04-26] MEDS: NEURONTIN PO SCH ×3 (09:10→16:04)
[2018-04-26] MEDS: COREG PO SCH ×2 (09:10→20:37)
[2018-04-26] MEDS: ANTIVERT PO SCH ×2 (09:10→20:37)
--- NOTE | 2018-04-26 13:40 | PROGRESS NOTE ---
DATE: 04/26/2018 SUBJECTIVE: The patient is resting comfortably in bed. She states that her vertigo is a little bit better today. OBJECTIVE: Vital Signs: Temperature 97.9 degrees, blood pressure 134/61, heart rate 85, respirations 18, O2 saturation 100% on room air. General: This is a chronically ill-appearing, elderly female, lying in bed in no acute distress. Heart: S1, S2 normal. Regular rate and rhythm. Lungs: Equal air entry bilaterally. Abdomen: Positive bowel sounds. Soft, nontender, nondistended. Extremities: No edema, no cyanosis. Neurologic: The patient is alert and oriented x3. LABS: Reviewed. ASSESSMENT AND PLAN: 1. Vertigo. Improved. Continue on meclizine. The patient will follow up with ENT upon discharge. 2. Extensive left lower extremity deep vein thrombosis. Continue on Xarelto. 3. Insulin-dependent diabetes mellitus. Continue on sliding scale insulin. 4. History of breast cancer, status post right mastectomy. Aware. 5. Severe carotid artery stenosis. The patient will follow up with Dr. Angeles upon discharge from the hospital. 6. Situational depression. Continue on Lexapro. 7. Disposition. We will arrange for home health for the patient. The patient will likely be discharged home tomorrow. cc: Emelina Newman MD
[2018-04-26] MEDS: TYLENOL PO PRN (16:05)
[2018-04-26] MEDS: MELATONIN PO SCH (20:37)
[2018-04-27] MEDS: TYLENOL PO PRN (00:06)
[2018-04-27] MEDS: NORCO-7.5 PO PRN ×4 (01:01→20:07)
[2018-04-27] MEDS: PROTONIX PO SCH (06:07)
[2018-04-27] MEDS: HUMULIN R SUBQ SCH ×4 (06:08→21:01)
[2018-04-27] MEDS: APRESOLINE PO SCH ×3 (06:08→20:08)
[2018-04-27] MEDS ORDERED: VALIUM PO ONE (09:48)
[2018-04-27] MEDS: NEURONTIN PO SCH ×3 (10:11→20:07)
[2018-04-27] MEDS: ANTIVERT PO SCH ×2 (10:11→20:07)
[2018-04-27] MEDS: NORVASC PO SCH (10:11)
[2018-04-27] MEDS: ASPIRIN PO SCH (10:12)
[2018-04-27] MEDS: COREG PO SCH ×2 (10:12→20:07)
[2018-04-27] MEDS: VITAMIN D PO SCH (10:12)
[2018-04-27] MEDS: XARELTO PO SCH ×2 (10:12→20:07)
[2018-04-27] MEDS: LEXAPRO PO SCH (10:12)
--- NOTE | 2018-04-27 18:07 | PROGRESS NOTE ---
DATE: 04/27/2018 SUBJECTIVE: The patient states that she had another bad spell of vertigo around midnight this morning. OBJECTIVE: Vital Signs: Temperature 98 degrees, blood pressure 143/76, heart rate 65, respirations 20, O2 saturation is 100% on room air. General: This is a chronically ill-appearing elderly female lying in bed in no acute distress. Heart: S1, S2 normal. Regular rate and rhythm. Lungs: Clear to auscultation bilaterally. Abdomen: Positive bowel sounds. Soft, nontender, nondistended. Extremities: No edema, no cyanosis. Neuro: The patient is alert and oriented x3. LABS: None. ASSESSMENT AND PLAN: 1. Vertigo. The patient states that she feels a little bit worse today. Will continue on meclizine. Will also give the patient a dose of Valium and monitor her closely. The patient will follow up with ENT upon discharge from the hospital. 2. Extensive left lower extremity deep vein thrombosis. Continue on Xarelto. 3. Insulin-dependent diabetes mellitus. Continue on sliding scale insulin. 4. Severe carotid artery stenosis. The patient will follow up with Dr. Angeles as outpatient. 5. History of breast cancer status post mastectomy. Aware. 6. Situational depression. Continue on Lexapro. 7. Continue with physical therapy. cc: Emelina Newman MD
[2018-04-27] MEDS: DESYREL PO SCH (20:08)
[2018-04-27] MEDS: MELATONIN PO SCH (20:08)
[2018-04-28] MEDS: NORCO-7.5 PO PRN ×3 (04:00→20:19)
[2018-04-28] MEDS: PROTONIX PO SCH (06:08)
[2018-04-28] MEDS: HUMULIN R SUBQ SCH ×4 (06:08→20:55)
[2018-04-28] MEDS: APRESOLINE PO SCH ×3 (06:08→20:12)
[2018-04-28] MEDS ORDERED: VALIUM PO ONE (09:13)
[2018-04-28] MEDS: ANTIVERT PO SCH ×2 (09:40→20:13)
[2018-04-28] MEDS: COREG PO SCH ×2 (09:40→20:12)
[2018-04-28] MEDS: VITAMIN D PO SCH (09:40)
[2018-04-28] MEDS: ASPIRIN PO SCH (09:40)
[2018-04-28] MEDS: NORVASC PO SCH (09:40)
[2018-04-28] MEDS: LEXAPRO PO SCH (09:40)
[2018-04-28] MEDS: XARELTO PO SCH ×2 (09:40→20:13)
[2018-04-28] MEDS: NEURONTIN PO SCH ×3 (09:40→20:12)
[2018-04-28] MEDS ORDERED: LEVEMIR SUBQ ONE (14:01)
--- NOTE | 2018-04-28 14:37 | PROGRESS NOTE ---
DATE: 04/28/2018 SUBJECTIVE: The patient states that she felt better yesterday after receiving a dose of Valium. She reports that her vertigo is a little bit better today. OBJECTIVE: Vital Signs: Temperature 98 degrees, blood pressure 119/68, heart rate 69, respirations 16, O2 saturation is 96% on room air. General: This is a chronically ill-appearing elderly female lying in bed in no acute distress. Heart: S1, S2 normal. Regular rate and rhythm. Lungs: Equal air entry bilaterally. No crackles. No rales. Abdomen: Positive bowel sounds. Soft, nontender, nondistended. Extremities: No edema. No cyanosis. Neurologic: The patient is alert and oriented x3. LABORATORY DATA: None. ASSESSMENT AND PLAN: 1. Vertigo. Continue on meclizine and Valium. We will await another physical therapy evaluation tomorrow. 2. Extensive left lower extremity deep vein thrombosis. Continue on Xarelto. 3. Insulin-dependent diabetes mellitus. The patient's blood sugars have been running in the 200s- 300s. We will add long-acting insulin in addition to the sliding scale insulin. 4. Severe carotid artery stenosis. The patient will follow up with Dr. Angeles as an outpatient for further workup. 5. History of breast cancer status post mastectomy. Aware. 6. Situational depression. Continue on Lexapro. 7. Continue with physical therapy. cc: Emelina Newman MD
[2018-04-28] MEDS: MELATONIN PO SCH (20:13)
[2018-04-28] MEDS: DESYREL PO SCH (20:13)
[2018-04-29] MEDS: APRESOLINE PO SCH ×3 (04:25→20:57)
[2018-04-29] MEDS: NORCO-7.5 PO PRN ×3 (04:25→18:08)
[2018-04-29] MEDS: HUMULIN R SUBQ SCH ×4 (06:17→20:57)
[2018-04-29] MEDS: PROTONIX PO SCH (06:17)
[2018-04-29] MEDS: NEURONTIN PO SCH ×3 (08:14→20:57)
[2018-04-29] MEDS: ANTIVERT PO SCH ×2 (08:14→20:57)
[2018-04-29] MEDS: XARELTO PO SCH ×2 (08:14→20:57)
[2018-04-29] MEDS: ASPIRIN PO SCH (08:14)
[2018-04-29] MEDS: LEXAPRO PO SCH (08:15)
[2018-04-29] MEDS: NORVASC PO SCH (08:15)
[2018-04-29] MEDS: VITAMIN D PO SCH (08:15)
[2018-04-29] MEDS: COREG PO SCH (08:15)
[2018-04-29] MEDS: LEVEMIR SUBQ SCH (08:18)
[2018-04-29] MEDS ORDERED: INSULIN PEN NEEDLES ONE (08:23)
--- NOTE | 2018-04-29 12:22 | PROGRESS NOTE ---
DATE: 04/29/2018 SUBJECTIVE: The patient is resting comfortably in bed. No acute events noted overnight. However, this morning, the patient was noted to be hypotensive with a blood pressure of 100/45. The patient was asymptomatic at the time. OBJECTIVE: Vital Signs: Temperature 98.2, blood pressure 100/45, heart rate 71 , respirations 18, O2 saturation 99% on room air. General: This is a chronically ill-appearing, elderly female, lying in bed in no acute distress. Heart: S1, S2 normal. Regular rate and rhythm. Lungs: Clear to auscultation bilaterally. Abdomen: Positive bowel sounds. Soft, nontender, nondistended. Extremities: No edema, no cyanosis. Neurologic: The patient is alert and oriented x3. LABS: None. ASSESSMENT AND PLAN: 1. Vertigo. Improved. We will continue on meclizine. The patient will follow up with ENT as outpatient. Continue with physical therapy. 2. Extensive left lower extremity deep vein thrombosis. Continue on Xarelto. The patient will follow up with Dr. Hoff upon discharge. 3. Insulin-dependent diabetes mellitus. Continue on Levemir, plus sliding scale insulin. 4. Severe carotid artery stenosis. The patient will follow up with Dr. Angeles as outpatient for further assessment. 5. Situational depression. Continue on Lexapro. 6. History of breast cancer, status post mastectomy. Aware. DISPOSITION: The patient should be stable for discharge home with home health tomorrow. cc: Emelina Newman MD MTDD
[2018-04-29] MEDS: MELATONIN PO SCH (20:57)
[2018-04-29] MEDS: DESYREL PO SCH (20:57)
[2018-04-29] MEDS: TYLENOL PO PRN (21:01)
[2018-04-30] MEDS: NORCO-7.5 PO PRN ×4 (00:09→18:39)
[2018-04-30] MEDS: PROTONIX PO SCH (06:11)
[2018-04-30] MEDS: APRESOLINE PO SCH ×3 (06:11→21:58)
[2018-04-30] MEDS: HUMULIN R SUBQ SCH ×4 (06:13→22:00)
[2018-04-30] MEDS: XARELTO PO SCH ×2 (09:46→21:59)
[2018-04-30] MEDS: NORVASC PO SCH (09:46)
[2018-04-30] MEDS: VITAMIN D PO SCH (09:46)
[2018-04-30] MEDS: ASPIRIN PO SCH (09:46)
[2018-04-30] MEDS: LEXAPRO PO SCH (09:46)
[2018-04-30] MEDS: NEURONTIN PO SCH ×3 (09:47→21:59)
[2018-04-30] MEDS: ANTIVERT PO SCH ×2 (09:47→21:59)
[2018-04-30] MEDS: LEVEMIR SUBQ SCH (09:50)
--- NOTE | 2018-04-30 15:34 | PROGRESS NOTE ---
DATE: 04/30/2018 SUBJECTIVE: Patient is resting in bed. No new complaints today. OBJECTIVE: Vital signs: Temperature 98 degrees, pulse 74, respiratory rate is 18, blood pressure is 159/69, oxygen saturation is 100%. HEENT: Atraumatic, normocephalic. Cardiovascular: S1, S2. Respiratory: Has evidence of good air entry bilaterally. Abdomen: Soft, nontender. No masses felt. Extremities: No edema in the lower extremities but does have tenderness in the region of the left calf. LABS: WBC 3.61, hematocrit 38.6, with a platelet count of 109,000. Blood glucose is 272. ASSESSMENT AND PLAN: 1. Syncope. The patient continues to complain of occasional dizziness. Does have significant carotid disease bilaterally, worse on the right side, and has been evaluated by the surgical team. 2. Hypertension. Continue current antihypertensive regimen. 3. Deep vein thrombosis left lower extremity. Continue anticoagulation. The patient is currently on rivaroxaban. 4. Diabetes mellitus. Continue blood sugar monitoring as well as sliding scale insulin. 5. Depression. Continue antidepressant. 6. History of breast cancer. Aware. 7. History of fibromyalgia. Aware. cc: Maynor Hathaway MD
[2018-04-30] MEDS: TYLENOL PO PRN (21:58)
[2018-04-30] MEDS: DESYREL PO SCH (21:59)
[2018-04-30] MEDS: MELATONIN PO SCH (21:59)
[2018-05-01] MEDS: NORCO-7.5 PO PRN ×3 (00:20→12:45)
[2018-05-01] MEDS: APRESOLINE PO SCH ×2 (06:30→12:45)
[2018-05-01] MEDS: PROTONIX PO SCH (06:30)
[2018-05-01] MEDS: HUMULIN R SUBQ SCH ×2 (06:31→11:22)
--- NOTE | 2018-05-01 08:33 | HEMO/ONC CONSULTATION ---
DATE: 04/23/2018 ADMITTING PHYSICIAN: Maynor Hathaway MD REQUESTING PHYSICIAN: Maynor Hathaway MD We appreciate this consult. CHIEF COMPLAINT: Breast cancer. HISTORY OF PRESENT ILLNESS: Ms. Mirna Myers is a 68-year-old female well known to Dr. Hoff with a history of invasive mammary carcinoma, status post treatment with Taxol followed by modified radical right mastectomy in January 2019. The patient has had ongoing medical problems since that time. She does have a history of hypertension, diabetes mellitus type 2, fibromyalgia, and mitral valve prolapse. The patient presented to the hospital on the day of admission secondary to reports of 2 to 3 days of dizziness. Additionally, the patient reports that she had lost consciousness for 5 to 10 minutes. The episode was not with witnessed and no associated seizures were reported. The patient experienced blurred vision with bilateral lower extremity weakness that was worse on the left than right. The patient presented to [facility] emergency department where her blood pressure was found to be 210/136. She underwent CT of the head and cervical spine, which revealed no evidence of acute intracranial disease, and degenerative disk disease at C5 and 6. Due to lower extremity pain and swelling, the patient underwent venous Doppler, which revealed extensive left lower extremity DVT. We are consulted as the patient is well known to us, for acute management of DVT. PAST MEDICAL HISTORY: 1. Hypertension. 2. Diabetes mellitus type 2. 3. Invasive mammary carcinoma. 4. Fibromyalgia. 5. Mitral valve prolapse. PAST SURGICAL HISTORY: 1. Carpal tunnel release. 2. Hysterectomy. 3. Right mastectomy. FAMILY HISTORY: Negative for any hematologic or oncologic disease. SOCIAL HISTORY: The patient has a history of smoking cigarettes. She does not use alcohol or illicit drugs. MEDICATIONS ON ADMISSION: 1. Metformin. 2. Vitamin D. 3. Reglan. 4. Lexapro. 5. Regular insulin. ALLERGIES: Penicillin, codeine, mycins, and iodinated contrast, oral as well as IV. REVIEW OF SYSTEMS: A 14-point review of systems was obtained and is negative except for as mentioned in the HPI. PHYSICAL EXAMINATION: General: Ms. Myers is lying supine in bed, in no immediate distress. Vital Signs: Temperature 97.9 degrees, blood pressure 142/57, heart rate 68, respirations 16, O2 saturation 100% on room air. HEENT: Normocephalic, atraumatic. Mucous membranes pink and moist. Sclerae anicteric. Extraocular movements intact. Neck: Supple. Lungs: Clear to auscultation bilaterally. Chest expansion equal bilaterally. Cardiovascular: S1 and S2 heard. No murmurs, rubs, or gallops. Abdomen: Nondistended. Extremities: No clubbing or cyanosis. The patient does have 1+ bilateral lower extremity edema. Dermatologic: No rashes, bruises, or lesions. Neurologic: The patient is awake, alert, and oriented x3 and has no focal deficit. LABORATORY DATA: Hemoglobin 13.0, hematocrit 39.9, white blood cell count 3.81, platelets 113,000. Sodium 137, potassium 3.6, chloride 99, CO2 25, BUN 11, creatinine 0.3, glucose 233, calcium 8.7. IMAGING STUDIES: MRI of the brain reveals chronic ischemic changes and no acute disease. ASSESSMENT AND PLAN: 1. Invasive mammary carcinoma, status post Taxol with modified radical right mastectomy in January 2018. 2. Syncope. MRI was negative. Workup is currently in progress. 3. Hypertension. Would monitor. Blood pressure is currently stable. 4. Diabetes mellitus type 2, stable at this time. Would continue to monitor. 5. Acute deep venous thrombosis. The patient is currently on therapeutic Lovenox. Would change to p.o. Xarelto 15 mg b.i.d. when appropriate. We will follow along with you and make further recommendations pending outcomes. The above reflects the history, exam, assessment plan of Dr. Hoff. Dictated by JOB Macedo for Ander Hoff MD cc: JOB Macedo MD
[2018-05-01] MEDS: ANTIVERT PO SCH (09:00)
[2018-05-01] MEDS: XARELTO PO SCH (09:00)
[2018-05-01] MEDS: LEXAPRO PO SCH (09:00)
[2018-05-01] MEDS: NORVASC PO SCH (09:00)
[2018-05-01] MEDS: LEVEMIR SUBQ SCH (09:00)
[2018-05-01] MEDS: NEURONTIN PO SCH (09:00)
[2018-05-01] MEDS: VITAMIN D PO SCH (09:01)
[2018-05-01] MEDS: ASPIRIN PO SCH (09:01)
--- NOTE | 2018-05-01 14:20 | DISCHARGE SUMMARY ---
ADMISSION DATE: 04/19/2018 DISCHARGE DATE: PRINCIPAL DIAGNOSIS: Syncope. SECONDARY DIAGNOSES: 1. Hypertension. 2. Diabetes mellitus. 3. DVT left lower extremity. 4. History of breast cancer. 5. Depression. 6. Fibromyalgia. 7. Bilateral carotid artery disease. DISCHARGE MEDICATIONS: 1. Trazodone 25 mg at bedtime. 2. Hydralazine 25 mg p.o. every 8 hours. 3. Amlodipine 5 mg p.o. daily. 4. Cholecalciferol 2000 units p.o. once a day. 5. S citalopram 10 mg p.o. daily. 6. Gabapentin 100 mg p.o. 3 times a day. 7. Levemir 20 units subcutaneous once a day. 8. Aspirin 81 mg p.o. daily. 9. Metformin 500 mg p.o. twice a day. 10. [place] 7.5 every 6 hours as needed. PROCEDURES DURING HOSPITAL STAY: 1. CT scan of the head and C-spine 04/19/2018. 2. Echocardiogram done 04/19/2018. 3. Carotid Doppler study 04/19/2018. 4. Venous Doppler study 04/20/2018. 5. General Surgery evaluation to 04/23/2018. CONSULTATIONS DURING HOSPITAL STAY: 1. Dr. Checo Angeles General Surgery. 2. Dr. Brar, Neurology. Dr. Hoff, Hematology Oncology. HOSPITAL COURSE: Ms. Mirna Myers is a 68-year-old female who was admitted to the hospital with syncope, and was also follow to have markedly elevated blood pressure. The patient did have both cardiac as well as neuro workup done. Carotid Doppler study showed some degree of carotid artery stenosis. The patient will be following up with Dr. Angeles as an outpatient. During the course of the hospital stay, she was found to have DVT of the left lower extremity. She was initially started on Lovenox, but she has been transitioned over to oral Xarelto. At this time, patient has done well. She is stable, and she can now be discharged home. She will be going home with home health services. PHYSICAL EXAMINATION: Vital Signs: During my evaluation, vital signs are as follows. Temperature 98 degrees, pulse 75, respiratory rate 20, blood pressure 143/87 and oxygen saturation is 98%. HEENT: Atraumatic and normocephalic. Cardiovascular: S1, S2. Respiratory: Evidence of good air entry bilaterally. Abdomen: Soft and nontender. No masses felt. Extremities: Edema in both lower extremities. PLAN: The patient is discharged home today with home health services. Follow up with Dr. Angeles of Surgery. Dr. Hoff of Hematology Oncology, and also primary care physician. cc: Maynor Hathaway MD MTDD
[2018-05-01 14:34] VITALS: BP 116/83
== END 2018-05-01 15:47 | disposition home health service (06) | DRG 312 ==
LOC: SUPCPDRO → ED 11:24 → 3N 21:23 → SUATTDRO 21:23 → 3N 04-23 05:22
PROVIDERS: ATTEND Internal Medicine
CPT/HCPCS: 70450; 70553; 71010; 71045; 72125; 73502; 80048; 80053; 81001; 82009; 82550; 82948; 83036; 84484; 85025; 85027; 85610; 85730; 93005; 93306; 93880; 93971; 95816; 96374; 97110; 97162; 97530; 99285; A9270; A9579; C8929; J1650; J1885; J2405; J7030; Q9957; XXXXX